=== PATIENT | female | born 1985 | race Caucasian/White ===

== ENCOUNTER 2018-12-23 06:01 | Emergency (ER) | payer SELFPAY ==
[~2018-12-23] VITALS: Ht 154.9 cm; Wt 69.6 kg
--- NOTE | 2018-12-23 06:15 | NUR ---
FIRST CONTACT WITH PT. PT C/O LEFT SIDED ABD PAIN X15 DAYS. PT REPORTS SHE CAN'T CATCH HER BREATH. PT HAS 1 EPISODE OF DIARRHEA TODAY. PT DENIES ANY OTHER S/S AT THIS TIME. BP/SPO2 MONITORS IN PLACE. CALL LIGHT WITHIN REACH. EDMD AT BEDSIDE TO ASSESS AT THIS TIME.
[2018-12-23] MEDS ORDERED: SODIUM CHLORIDE FLUSH 10ML SYR IVF ONE (06:30)
--- NOTE | 2018-12-23 06:30 | NUR ---
PT AMB TO BR AND BACK TO ROOM WITH STEADY GAIT. UA SENT.
[2018-12-23 06:33] LABS: MICROSCOPIC NOT IND
[2018-12-23 06:34] LABS: CULTURE INDICATED? NO
[2018-12-23 06:39] LABS: BASOPHILS # (AUTO) 0.02 x10^3/uL (0-0.1); BASOPHILS % (AUTO) 0 % (0-1); EOSINOPHILS % (AUTO) 3 % (1-7); LYMPHOCYTES # (AUTO) 2.02 x10^3/uL (1-3.4); LYMPHOCYTES % (AUTO) 32 % (22-44); MD NO; MEAN CORPUSCULAR HEMOGLOBIN 26.9 pg (27.0-34.8); MEAN CORPUSCULAR HGB CONC 32.8 g/dL (32.4-35.8); MEAN CORPUSCULAR VOLUME 81.8 fL (80-100); MEAN PLATELET VOLUME 8.6 fL (7.4-10.4); MONOCYTES # (AUTO) 0.63 x10^3/uL (0.2-0.8); MONOCYTES % (AUTO) 10 % (2-9); NEUTROPHILS # (AUTO) 3.43 x10^3/uL (1.8-6.8); NEUTROPHILS % (AUTO) 55 % (42-75); PLATELET COUNT 291 x10^3/uL (130-400); RED BLOOD COUNT 5.31 x10^6/uL (3.82-5.3); RED CELL DISTRIBUTION WIDTH 12.9 % (9.6-15.2)
[2018-12-23 06:47] LABS: ALBUMIN 3.5 g/dL (3.4-5.0); ANION GAP 4 mmol/L (5-15); CALCIUM 8.7 mg/dL (8.5-10.1); CHLORIDE 109 mmol/L (98-107)
--- NOTE | 2018-12-23 06:50 | NUR ---
REPORT GIVEN TO KULDIP MEZA.
--- NOTE | 2018-12-23 06:50 | NUR ---
REPORT GIVEN TO KULDIP MEZA.
[2018-12-23 06:55] LABS: ALANINE AMINOTRANSFERASE 44 U/L (12-78); ALKALINE PHOSPHATASE 134 U/L (45-117); BILIRUBIN,TOTAL 0.3 mg/dL (0.2-1.0); CREATININE 0.63 mg/dL (0.55-1.02); TOTAL PROTEIN 7.7 g/dL (6.4-8.2)
--- NOTE | 2018-12-23 06:55 | NUR ---
Pt resting comfortably, aware of POC. Call light within reach, blanket provided.
--- NOTE | 2018-12-23 07:16 | NUR ---
Pt to CT via [facility].
[2018-12-23] MEDS ORDERED: OMNIPAQUE 350 MG/ML, 100ML BOTTLE ONE (07:24)
--- NOTE | 2018-12-23 07:37 | NUR ---
Back from CT, results pending.
[2018-12-23] MEDS ORDERED: MAALOX/HYOSCYAMINE/LIDOCAINE 45 ML BTL ONE (07:55)
--- NOTE | 2018-12-23 07:56 | NUR ---
GI cocktail given as per emar. Will monitor for effect.
[2018-12-23] MEDS ORDERED: MAALOX/HYOSCYAMINE/LIDOCAINE 45 ML BTL PO ONE (08:00)
--- NOTE | 2018-12-23 08:17 | NUR ---
Pt reports improvement of ABD pain after GI cocktail.
[2018-12-23 09:37] VITALS: BP 116/62
--- NOTE | 2018-12-23 09:37 | NUR ---
Delay in d/c due to H.Pylori not being run in micro until 40min after order placed- pt was updated on delay. Patient given discharge instructions and they have confirmed that they understand the instructions. Patient ambulatory with steady gait.
== END 2018-12-23 09:39 | disposition home or self-care (01) ==
LOC: ED 07:31
DX: K25.3 Acute gastric ulcer without hemorrhage or perforation (principal); B96.81 Helicobacter pylori [H. pylori] as the cause of diseases classified elsewhere
CPT/HCPCS: 36415; 74177; 80053; 81003; 83690; 84703; 85025; 86677; 93005; 99284; Q9967

== ENCOUNTER 2020-11-02 16:38 | Emergency (ER) | payer SELFPAY ==
[~2020-11-02] VITALS: Ht 157.5 cm; Wt 76.0 kg
--- NOTE | 2020-11-02 17:54 | NUR ---
PT VITALS RECHECKED. VSS. PT IN NO ACUTE DISTRESS
[2020-11-02 17:56] LABS: MICROSCOPIC AUTO
--- NOTE | 2020-11-02 17:57 | NUR ---
[employer]: PT AMBULATORY TO ROOM FROM LOBBY
--- NOTE | 2020-11-02 18:02 | NUR ---
PT TAKEN TO US
[2020-11-02 18:47] LABS: BASOPHILS % (AUTO) 1 % (0-1); EOSINOPHILS % (AUTO) 4 % (1-7); LYMPHOCYTES % (AUTO) 40 % (22-44); MEAN CORPUSCULAR HEMOGLOBIN 28.3 pg (27.0-34.8); MEAN CORPUSCULAR HGB CONC 33.3 g/dL (32.4-35.8); MEAN PLATELET VOLUME 8.7 fL (7.4-10.4); MONOCYTES % (AUTO) 8 % (2-9); NEUTROPHILS % (AUTO) 48 % (42-75); PLATELET COUNT 245 x10^3/uL (130-400); RED BLOOD COUNT 4.79 x10^6/uL (3.82-5.3); RED CELL DISTRIBUTION WIDTH 14.3 % (9.6-15.2)
--- NOTE | 2020-11-02 18:47 | NUR ---
pt in bed with no signs or symptoms of acute distress noted respirations even and unlabored denies need at this time
[2020-11-02 18:50] LABS: MD NO
[2020-11-02 18:59] LABS: ALBUMIN 3.7 g/dL (3.4-5.0); ANION GAP 4 mmol/L (5-15); CALCIUM 8.5 mg/dL (8.5-10.1); CHLORIDE 109 mmol/L (98-107)
[2020-11-02 19:06] LABS: ALANINE AMINOTRANSFERASE 38 U/L (12-78); ALKALINE PHOSPHATASE 91 U/L (45-117); BILIRUBIN,TOTAL 0.5 mg/dL (0.2-1.0); CREATININE 0.68 mg/dL (0.55-1.02); TOTAL PROTEIN 7.7 g/dL (6.4-8.2)
[2020-11-02] MEDS ORDERED: ACETAMINOPHEN 325 MG TABLET ONE (19:21)
[2020-11-02] MEDS ORDERED: KETOROLAC 30 MG/1 ML ONE (19:21)
[2020-11-02] MEDS ORDERED: KETOROLAC 30 MG/1 ML IM ONE (19:30)
[2020-11-02] MEDS ORDERED: ACETAMINOPHEN 325 MG TABLET PO ONE (19:30)
[2020-11-02 20:03] VITALS: BP 103/74
== END 2020-11-02 20:05 | disposition home or self-care (01) ==
LOC: ED 19:58
DX: K29.00 Acute gastritis without bleeding (principal); R10.11 Right upper quadrant pain; Z90.49 Acquired absence of other specified parts of digestive tract
CPT/HCPCS: 36415; 76700; 80053; 81001; 83690; 84703; 85025; 87086; 96372; 99284; J1885